=== PATIENT | female | born 1970 | race Caucasian/White ===

== ENCOUNTER 2016-08-23 15:22 | Emergency (ER) | payer SELFPAY ==
[~2016-08-23] VITALS: Ht 162.6 cm; Wt 117.8 kg
[~2016-08-23 15:22] MED LIST: LEVO.075 PO; MELO15TA2 PO; METO50TA PO; PANT20 PO; TRAM50 PO
[2016-08-23 15:32] VITALS: BP 151/93; PULSE 113; RESP 16; TEMP 98.5; O2SAT 97
--- NOTE | 2016-08-23 17:02 | RADHPO ---
EXAM DATE/TIME: 08/23/2016 16:26 [place] COMPARISON: No previous studies available for comparison. INDICATIONS : Left knee pain after fall. MEDICAL HISTORY : None. SURGICAL HISTORY : None. ENCOUNTER: Initial ACUITY: 3 days PAIN SCORE: 10/10 LOCATION: Left knee FINDINGS: A standard 4 view examination of the left knee was obtained and demonstrates normal mineralization an d alignment. There is no acute fracture. There is mild fullness in the suprapatellar bursa region con sistent with a small joint effusion. There is no joint body. CONCLUSION: 1. No acute fracture or malalignment. 2. Small joint effusion. Doug Lopez MD on August 23, 2016 at 16:59 Board Certified Radiologist. This report was verified electronically.
--- NOTE | 2016-08-23 17:28 | PD ---
HPI Chief Complaint: Musculoskeletal Complaint Time Seen by Provider: 17:24 Travel History International Travel<30 days: No Contact w/Intl Traveler<30days: No Traveled to known affect area: No History of Present Illness HPI Patient comes in complaining of left knee pain ongoing for approximately 2 weeks. Patient states that she initially slipped on a mat in a patient's room 2 weeks ago has been having a funny feeling in her left knee since. Patient went to step today when she felt a "pop" over the medial aspect of her left knee that radiates across her knee and distally. Patient has been using over- the-counter ibuprofen for symptomatic relief. Pain is worse with walking. Denies any other known trauma. Denies any numbness or tingling. PFSH Past Medical History Hypertension: Yes Thyroid Disease: Yes Social History Alcohol Use: No Tobacco Use: Yes Allergies-Medications (Allergen,Severity, Reaction): Coded Allergies: No Known Allergies (Unverified , 08/23/16) Reported Meds & Prescriptions Reported Meds & Active Scripts Active Diclofenac Sodium DR (Diclofenac Sodium) 75 Mg Tabdr 75 Mg PO Q12HR PRN Reported Prozac (Fluoxetine HCl) 10 Mg Cap 10 Mg PO DAILY Synthroid (Levothyroxine Sodium) 100 Mcg Tab 100 Mcg PO DAILY Metoprolol Succinate ER 24 HR (Metoprolol Succinate) 25 Mg Tab 25 Mg PO DAILY Review of Systems Except as stated in HPI: all other systems reviewed are Neg Physical Exam Narrative GENERAL: Well-developed, overly nourished, in no acute distress, and non-ill appearing. SKIN: Warm and dry. HEAD: Atraumatic. Normocephalic. EYES: Pupils equal and round. EOMI. No scleral icterus. No injection or drainage. ENT: No nasal bleeding or discharge. Mucous membranes pink and moist. NECK: Trachea midline. Supple. No nuclear rigidity. CARDIOVASCULAR: Dorsal pulses 2+, equal, and intact bilaterally. Capillary refill less than 2 seconds. No pedal edema. RESPIRATORY: No accessory muscle use. No respiratory distress. MUSCULOSKELETAL: No obvious deformities. No clubbing. No cyanosis. No edema. Full range of motion. Knee: Negative patellar apprehension, varus and valgus maneuvers, anterior draw test, and Chivo test. Pulses equal BL distal to injury. Capillary refill less than 2 seconds distal to injury and equal BL. FROM distal to injury and equal BL. Strength distal to injury equal BL. NV intact distal to injury. Dorsal pulses equal BL. Patient reports tenderness to palpation over anterior medial aspect of the left knee with some soft tissue swelling noted. NEUROLOGICAL: Awake and alert. No obvious cranial nerve deficits. Motor grossly within normal limits. Normal speech. PSYCHIATRIC: Appropriate mood and affect; insight and judgment normal. Data Data Last Documented VS Vital Signs Date Time Temp Pulse Resp B/P Pulse Ox O2 Delivery O2 Flow Rate FiO2 08/23/16 15:32 98.5 113 16 151/93 97 Orders Knee, Complete (4vws) (08/23/16 ) Splint Or Brace Apply/Monitor (08/23/16 17:22) [facility] Medical Decision Making Medical Screen Exam Complete: Yes Emergency Medical Condition: Yes Differential Diagnosis Fracture, sprain, contusion, other Narrative Course There is no clinical evidence to suspect bony injury by exam. Radiographic examination revealed no fracture seen at this time. No obvious ligamental injury or obvious internal derangement is noted at this time. The anterior, posterior, lateral and medial collateral ligaments are intact and symmetrical. The distal extremity appears neurovascularly intact, without evidence of neurovascular injury nor compartment syndrome. Tendon exam also was intact. The effected limb was immobilized. The patient was discharged on pain medication along with sprain and splint care instructions and given warnings for vascular compromise. The patient is to follow up with workman's comp or Orthopedics. The patient agrees with plan. Patient in no obvious distress upon re-evaluation. All pertinent Radiology result(s) discussed with patient/family. Patient was asked if they wanted to speak to my attending, which the patient did not wish to do at this time. Any questions/concerns in reference to patient diagnosis/condition discussed and clarified prior to patient's discharge. Reinforced sheer importance of close follow up with patient's primary physician or primary care clinic. Instructed patient to return to ED immediately, if symptoms return/worsen. Pt showed understanding of above instructions. Further instructions and recommendations were detailed in discharge paperwork. Pt ambulated without difficulty out of ED at discharge in the immobilizer and with the assistance of crutches. Diagnosis Primary Impression: Knee pain, left anterior Additional Impression: Effusion of knee joint, left Referrals: Trevor Massey MD Patient Instructions: Crutch Instructions (ED), General Instructions, Knee Immobilizer (DC), Knee Pain (ED) Additional Instructions: Follow-up with your Workmen's Comp. provider and/or orthopedics in 24-48 hours for reevaluation. Take all medication as prescribed. Apply ice to affected area 20 minutes per hour as needed for pain. Return to the emergency department if symptoms get worse. Med/Other Pt SpecificInfo: Prescription(s) given Scripts Diclofenac Sodium DR 75 Mg Tabdr75 Mg PO Q12HR PRN (PAIN SCALE 1 TO 10) #12 TAB Ref 0 Prov:Tray Hunter MD 08/23/16 Disposition: 01 DISCHARGE HOME Condition: Stable Chi Murray Aug 23, 2016 17:28
[2016-08-23] MEDS ORDERED: DICL50TA3 PO (17:31)
[2016-08-23] MEDS ORDERED: DICL75TA PO (17:32)
[2016-08-23] MEDS ORDERED: FLUO-1 PO (17:38)
[2016-08-23] MEDS ORDERED: METO25TA6 PO (17:38)
[2016-08-23] MEDS ORDERED: LEVO.1 PO (17:38)
== END 2016-08-23 17:50 | disposition home or self-care (01) ==
LOC: PHED 15:22 → PHEFT 17:50
DX: M25.562 Pain in left knee (principal); M25.462 Effusion, left knee
CPT/HCPCS: 73564; 99283; E0113; L1830